=== PATIENT | male | born 1930 | race Caucasian/White ===

== ENCOUNTER → 2016-12-28 | Outpatient (CLI) | payer MEDICARE, OTHER ==
--- NOTE | 2016-12-29 07:28 | HKNOTE ---
DATE OF SERVICE: 12/19/2016 MAIN COMPLAINT: Pain in the right hip. HISTORY OF MAIN COMPLAINT: The patient is an 86-year-old male who complains of pain in his right gr oin which has been present for "many months." He also gets pain in his right buttock. The groin pa in is approximately 60% of his problem, the buttock pain 40% of the problem. He has not had any evaluation or treatment for the problem. He is an old patient of mine. I gave h im a cortisone injection into his left knee 2 years ago for arthritis, and "this cured me completely ." PRESENT COMPLAINTS: His main pain is in his right groin. Pain radiates down the anterior aspect of the right thigh. Pain is intermittent. He has occasional days with no pain. He can walk up to a quarter of a mile at a time without stopping but with pain. He limps some of the time. He does not have a shoe lift. It is difficult to clip his toenails or put on his shoes and socks. PAST ORTHOPEDIC HISTORY: Two shoulder replacements. PRIOR CORTISONE INTAKE: Multiple cortisone injections. ALCOHOL INTAKE: "Very little." BLOOD TESTS FOR ARTHRITIS: None. WORK STATUS: The patient is a retired real estate salesman. PAST MEDICAL HISTORY: Please see the very lengthy typed-up list of conditions, treatments and speci alists supplied by the patient. They in the chart and no need to rehash in my report. SYSTEMS REVIEW: History of prostate cancer and a history of pituitary brain tumor surgery. See the written and typed list for the rest of this section. PHYSICAL EXAMINATION: GENERAL: The patient is a remarkably spry-looking, youthful 86-year-old male. He comes in with his . VITAL SIGNS: Height 5 feet 4 inches. Weight ____ pounds. Blood pressure 130/65, temperature 98.0. GAIT: The patient walks without a walking aid. He has a minimal antalgic gait. RIGHT HIP: Flexion is 110 degrees, external rotation 30, internal rotation 0, abduction 30, adducti on 0. The patient gets pain in the right groin at limits of motion. LEFT HIP: Flexion 120, external rotation 40, internal rotation 25, abduction 30, adduction 10. No pain. LEFT KNEE: The left knee shows normal alignment. Active and passive extension is 0 degrees. Active and passive flexion is 135 degrees. The medial and lateral collateral ligaments and cruciate ligame nts are intact. Mihir test is negative. There is 6+ crepitus in the knee, none in the patella. T here is no effusion, tenderness, scarring or cysts. The patella tracks normally. There is no tende rness on the articular surface of the patella or in the patellar groove. The Q angle is normal. RIGHT KNEE: The right knee shows normal alignment. Active and passive extension is 0 degrees. Act steve and passive flexion is 135 degrees. The medial and lateral collateral ligaments and cruciate li gaments are intact. Mihir test is negative. There is 3+ plus crepitus in the knee, none in the p atella. There is no effusion, tenderness, scarring, or cysts. The patella tracks normally. There is no tenderness on the articular surface of the patella or in the patellar groove. The Q angle is normal. IMAGING: Plain x-rays of the pelvis and hips obtained today at the [facility] we re reviewed. These show severe degenerative osteoarthritis of the right hip with complete bone-on-b one contact throughout the surface of the hip. Subchondral sclerosis and osteophyte formation. Imaging of the left hip as seen on these same views shows moderate narrowing of the left hip joint s pace. DIAGNOSES: 1. Severe arthritis of the right hip with moderate symptoms. 2. 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 3. History of bilateral shoulder replacements, prostate surgery, angiogram, pituitary brain tumor. See attached notes for remainder of diagnoses. MANAGEMENT: If this patient was 10 years younger, I would highly recommend we proceed with a hip re placement operation. However, he is an 86-year-old with a very long list of medical problems. My r ecommendation is that we proceed with conservative treatment for as long as we possibly can. It may be quite possible for us to nurse him along through the rest of his days conservatively. Under sterile conditions, he was given injection of 2 mL of Kenalog, 6 mL of 2% lidocaine into the r ight hip joint. He will be seen again as necessary for further evaluation and treatment. Dictated By: CRISTEL SEGURA/CLEMENTE Conf#: [id number] [facility]#: [id number]
--- NOTE | 2016-12-29 16:50 | RADRPT ---
PROCEDURE: XR pelvis/right hip. CLINICAL INDICATION: Hip pain TECHNIQUE: AP pelvis/lateral right hip view performed COMPARISON: No prior studies are available for comparison. FINDINGS: There is severe right hip osteoarthrosis and moderate left hip osteoarthrosis. This is associated wi th joint space narrowing, subchondral sclerosis , subchondral cyst formation and osteophytosis. The re is normal mineralization. No fractures or osseous lesions are identified. The soft tissues are unremarkable. IMPRESSION: Severe right hip osteoarthrosis. Moderate left hip osteoarthrosis RPTAT: HGDB .Felton Winn MD, MD Date Time Electronically viewed and signed by .Felton Winn MD, on 12/29/2016 16:50 .B/
== END | disposition home or self-care (01) ==
LOC: HKI 14:52
DX: M25.551 Pain in right hip (principal); M16.0 Bilateral primary osteoarthritis of hip; Z96.611 Presence of right artificial shoulder joint; Z96.612 Presence of left artificial shoulder joint
CPT/HCPCS: 20610; 73502; G0463